=== PATIENT | male | born 1965 | race Caucasian/White ===

== ENCOUNTER 2021-05-20 11:03 | Emergency (ER) | payer OTHER ==
[2021-05-20 12:27] LABS: HEMOGLOBIN 14.6 gm/dl (14.0-17.5); RED BLOOD COUNT 4.74 M/UL (4.20-5.50); WHITE BLOOD COUNT 15.9 K/UL (4.5-11.0)
[2021-05-20 12:56] LABS: BUN/CREATININE RATIO 12 (0-10)
[2021-05-20] MEDS ORDERED: NAPROXEN500 MG PO (15:34)
[2021-05-20] MEDS ORDERED: COLCHICINE 0.60.6 MG PO (15:42)
== END 2021-05-20 15:49 | disposition left against medical advice (07) ==
LOC: ER1 11:03
PROVIDERS: Physician Assistant Medical
DX: M25.561 Pain in right knee (principal); M25.562 Pain in left knee; M25.512 Pain in left shoulder; I10 Essential (primary) hypertension
CPT/HCPCS: 71111; 73030; 73564; 80053; 81001; 84550; 85025; 85652; 86140; 99283; J1885; J7030